=== PATIENT | female | born 1975 | race Caucasian/White ===

== ENCOUNTER 2021-04-05 18:00 | Emergency (ER) | payer OTHER ==
[2021-04-05 18:51] LABS: BASOPHIL 0.5 % (0-2); EOSINOPHIL 0.7 % (0-5); HCT 39.3 % (37.0-47.0); HGB 13.4 g/dl (12.5-16.0); LYMPHOCYTE 37.5 % (15-48); MCH 34.3 pg (25.0-31.0); MCHC 34.1 g/dL (32.0-36.0); MCV 100.5 fL (78.0-100.0); MONOCYTE 7.5 % (0-12); MPV 10.9 fL (6.0-9.5); NEUTROPHIL 53.1 % (41-80); NRBC 0; PLT 148 K/uL (150-400); RBC 3.91 M/uL (4.20-5.40); RDW 12.6 % (11.5-14.0)
[2021-04-05 19:16] LABS: ALBUMIN 3.4 g/dL (3.4-5.0); ALKALINE PHOSHATASE 120 U/L (46-116); ALT 66 U/L (14-59); AST 132 U/L (15-37); BILIRUBIN - TOTAL 0.6 mg/dL (0.2-1.0); BUN 9 mg/dL (7-18); BUN/CREAT RATIO (CALC) 14.1 RATIO; CHLORIDE 104 mmol/L (98-107); CO2 (BICARBONATE) 27 mmol/L (21-32); CREATININE 0.64 mg/dL (0.51-0.95); GLOBULIN (CALCULATION) 3.6 g/dL; GLUCOSE 223 mg/dL (74-106); POTASSIUM 2.9 mmol/L (3.5-5.1)
[2021-04-05 19:17] LABS: ACETAMINOPHEN (TYLENOL) < 2.0 ug/mL (10.0-30.0)
[2021-04-05 19:56] LABS: AMPHETAMINES NEGATIVE (NEGATIVE); BARBITURATES NEGATIVE (NEGATIVE); ECSTASY (MDMA) NEGATIVE (NEGATIVE); MARIJUANA (THC) POSITIVE (NEGATIVE); METHADONE NEGATIVE (NEGATIVE); OPIATES NEGATIVE (NEGATIVE); OXYCODONE NEGATIVE (NEGATIVE)
== END 2021-04-05 20:41 | disposition home or self-care (01) ==
LOC: FER 18:00
PROVIDERS: Emergency Medicine
DX: T40.7X1A Poisoning by cannabis (derivatives), accidental (unintentional), initial encounter (principal); I10 Essential (primary) hypertension; Z79.899 Other long term (current) drug therapy; Z88.0 Allergy status to penicillin
CPT/HCPCS: 36415; 71045; 80053; 80305; 84484; 85025; 93005; G0480; J7030